=== PATIENT | female | born 1970 | race Caucasian/White ===

== ENCOUNTER 2017-04-22 08:49 | Day surgery (SDC) | payer BC, OTHER ==
[~2017-04-22] VITALS: Ht 167.6 cm; Wt 68.5 kg
[~2017-04-22 08:49] MED LIST: NAPR500T3 PO
[2017-04-22] MEDS ORDERED: LACTATED RINGERS 1,000 ML IV SCH ×2 (09:34→13:22)
[2017-04-22 09:37] VITALS: BP 120/83
[2017-04-22] MEDS ORDERED: OXYC-302 PO (09:41)
[2017-04-22 10:04] LABS: HCG UR OBC PASS
[2017-04-22] MEDS ORDERED: PROPOFOL 10 MG/ML, 20ML ONE (10:39)
[2017-04-22] MEDS ORDERED: CEFAZOLIN 1,000 MG ONE (10:39)
[2017-04-22] MEDS ORDERED: METOCLOPRAMIDE 5 MG/ML, 2ML ONE (10:39)
[2017-04-22] MEDS ORDERED: NEOSTIGMINE 1 MG/ML, 10ML ONE (10:39)
[2017-04-22] MEDS ORDERED: ROCURONIUM 10 MG/ML ONE (10:39)
[2017-04-22] MEDS ORDERED: PROPOFOL 10 MG/ML, 50ML ONE (10:39)
[2017-04-22] MEDS ORDERED: ONDANSETRON 2MG/ML, 2ML ONE ×2 (10:39→13:19)
[2017-04-22] MEDS ORDERED: DEXAMETHASONE 4 MG/ML, 1ML ONE (10:39)
[2017-04-22] MEDS ORDERED: KETOROLAC 30 MG/1 ML ONE (10:39)
[2017-04-22] MEDS ORDERED: GLYCOPYRROLATE 0.2MG/1ML ONE (10:39)
[2017-04-22] MEDS ORDERED: BUPIVACAINE/PF 0.25% ONE (11:53)
[2017-04-22] MEDS ORDERED: BUPIVACAINE/PF-EPI 0.5% 1:200K ONE (11:54)
[2017-04-22] MEDS ORDERED: HYDROmorphone 1 MG/ML, 1ML IV PRN (12:30)
[2017-04-22] MEDS ORDERED: hydrALAzine 20 MG/ML, 1ML IV PRN (12:30)
[2017-04-22] MEDS ORDERED: OXYcodone 5 MG/5 ML ORAL.SOL UDC PO PRN (12:30)
[2017-04-22] MEDS ORDERED: ACETAMINOPHEN 325 MG TABLET PO PRN (12:30)
[2017-04-22] MEDS ORDERED: ONDANSETRON 2MG/ML, 2ML IVPush PRN ×2 (12:30→13:30)
[2017-04-22] MEDS ORDERED: LABETALOL 5MG/ML, 20ML IV PRN (12:30)
[2017-04-22] MEDS ORDERED: PROMETHAZINE 25 MG/ML, 1ML IV PRN (12:30)
[2017-04-22] MEDS ORDERED: ALBUTEROL/IPRATROPIUM 2.5MG/0.5MG, 3 ML NPPB PRN (12:30)
[2017-04-22] MEDS ORDERED: MIDAZOLAM 1 MG/ML, 2ML IV PRN (12:30)
[2017-04-22] MEDS ORDERED: FENTANYL PF 100 MCG/2ML ONE (13:04)
[2017-04-22] MEDS ORDERED: HYDROmorphone 1 MG/ML, 1ML ONE (13:04)
[2017-04-22] MEDS ORDERED: MEPERIDINE/PF 25MG/0.5ML ONE (13:19)
[2017-04-22] MEDS: MEPERIDINE/PF 25MG/0.5ML IVPush PRN ×2 (13:21→13:36)
[2017-04-22] MEDS ORDERED: IBUPROFEN 600 MG TABLET PO PRN (13:30)
[2017-04-22] MEDS ORDERED: PROMETHAZINE 25 MG SUPP PR ONE (13:30)
[2017-04-22] MEDS ORDERED: OXYcodone/APAP 5/325MG TABLET PO PRN (13:30)
[2017-04-22] MEDS: FENTANYL PF 100 MCG/2ML IV PRN ×2 (13:50→14:02)
[2017-04-22] MEDS ORDERED: OXYcodone 5 MG/5 ML ORAL.SOL UDC ONE (13:57)
== END 2017-04-22 17:30 | disposition home or self-care (01) ==
LOC: OUT 08:49
PROVIDERS: ATTEND Obstetrics & Gynecology Female Pelvic Medicine and Reconstructive Surgery
DX: N94.6 Dysmenorrhea, unspecified (principal); N73.6 Female pelvic peritoneal adhesions (postinfective); D25.9 Leiomyoma of uterus, unspecified; N85.2 Hypertrophy of uterus; G43.909 Migraine, unspecified, not intractable, without status migrainosus; Z98.890 Other specified postprocedural states; Z88.6 Allergy status to analgesic agent
CPT/HCPCS: 52000; 58571; 81025; 88307; J0171; J0690; J1100; J1885; J2175; J2250; J2405; J2704; J2710; J2765; J3010; J3490; J7120